=== PATIENT | male | born 1950 | race Caucasian/White ===

== ENCOUNTER 2019-11-05 10:13 | Outpatient (CLI) | payer MEDICARE, MEDICAID, SELFPAY ==
--- NOTE | 2019-11-05 13:00 | XRR_ITS ---
PROCEDURE INFORMATION: Exam: XR Right Shoulder Exam date and time: 11/05/2019 10:29 AM Age: 69 years old Clinical indication: Shoulder; Right; Patient HX: Pain when abducting, no know trauma TECHNIQUE: Imaging protocol: XR Right shoulder. Views: 2 or more views. COMPARISON: No relevant prior studies available. FINDINGS: Bones/joints: degenerative changes of the acromioclavicular joint. Degenerative changes of the glenohumeral joint Scapula normal Visualized ribs and visualized pulmonary parenchyma normal Coracoid process normal Soft tissues: Normal. XR/XR shoulder RT min 2V* [id number] IMPRESSION: Degenerative changes of the acromioclavicular joint and glenohumeral joint. Mild.
== END 2019-11-05 10:14 | disposition home or self-care (01) ==
LOC: RAD 10:18
PROVIDERS: PCP Nurse Practitioner Family; Visit Provider Family Medicine
DX: M25.511 Pain in right shoulder (principal)
CPT/HCPCS: 73030

== ENCOUNTER → 2019-12-31 09:00 | Outpatient (BNVA) | payer MEDICARE, MEDICAID, SELFPAY | PROVIDERS: PCP Nurse Practitioner Family; Visit Provider Nurse Practitioner Family | DX: I10 Essential (primary) hypertension (principal); E78.5 Hyperlipidemia, unspecified | CPT/HCPCS: 80053; 80061; 84439; 84443 ==

== ENCOUNTER → 2020-10-05 16:23 | Outpatient (BNVA) | payer MEDICARE, MEDICAID, SELFPAY | PROVIDERS: PCP Nurse Practitioner Family; Visit Provider Family Medicine | DX: T14.8XXA Other injury of unspecified body region, initial encounter (principal); W57.XXXA Bitten or stung by nonvenomous insect and other nonvenomous arthropods, initial encounter | CPT/HCPCS: 85025; 86618; 86666; 86757 ==

== ENCOUNTER → 2021-03-14 13:15 | Outpatient (BNVA) | payer MEDICARE, MEDICAID, SELFPAY | PROVIDERS: PCP Nurse Practitioner Family; Visit Provider Nurse Practitioner Family | DX: Z12.5 Encounter for screening for malignant neoplasm of prostate (principal); I10 Essential (primary) hypertension | CPT/HCPCS: 80053; 80061; 84443; G0103 ==

== ENCOUNTER 2022-01-26 17:48 | Emergency (ER) | payer MEDICARE, MEDICAID, SELFPAY ==
[2022-01-26 18:20] VITALS: BP 178/77; PULSE 79; RESP 17; TEMP 36.4; O2SAT 96; BMI 39.2
--- NOTE | 2022-01-26 18:52 | ECG_ITS ---
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 Measurements Intervals Heaters Rate: 65 P: 40 CA: 211 QRS: 29 QRSD: 98 T: 21 QT: 413 QTc: 430 Interpretive Statements SINUS RHYTHM WITH MARKED SINUS ARRHYTHMIA WITH FIRST DEGREE AV BLOCK No previous ECG available for comparison Electronically Signed On 01-26-2022 21:37:45 CDT by Gina Barnhart M.D. [id number]
--- NOTE | 2022-01-26 18:52 | XRR_ITS ---
PROCEDURE INFORMATION: Exam: XR Chest Exam date and time: 01/26/2022 7:17 PM Age: 71 years old Clinical indication: Other: Palpitations TECHNIQUE: Imaging protocol: Radiologic exam of the chest. Views: 1 view. COMPARISON: CR XR chest 2V* [id number] 05/19/2017 9:18 PM FINDINGS: Lungs: Unremarkable. No consolidation. Pleural spaces: Unremarkable. No pleural effusion. No pneumothorax. Heart/Mediastinum: Unremarkable. No cardiomegaly. Bones/joints: Unremarkable. XR/XR chest 1V portable [id number] IMPRESSION: No acute findings.
--- NOTE | 2022-01-26 18:54 | W.ED.ARRPALP ---
HPI - Arrhythmia/Palpitations General: Chief Complaint: Arrhythmia/Palpitations Stated Complaint: abnormal labs Time Seen by Provider: 01/26/22 18:37 Source: patient History of Present Illness: 71-year-old male with no prior history of coronary disease. He also does not have a history of atrial fibrillation. He went to the urgent care at [facility] earlier today, with hypertension. He had increased his lisinopril from 20mg to 40 mg daily, and was still having problems with his blood pressure. They did an EKG there, and noticed that he had an irregular heartbeat, and was sent here. He notes that besides some chronic pain in his chest from broken cartilage in his breastbone , he has not had significant pain or shortness of breath. He has had some sensation of heart racing at times MD complaint: palpitations Onset (ago): day(s) Duration: intermittent Severity: moderate Context: occurred during rest Arrhythmia history: other Associated symptoms: Deny diaphoresis, pre-syncope, sense of impending doom, short of breath, syncope or vomiting Review of Systems Const: Denies: diaphoresis Eyes: Denies: change in vision ENMT: Denies: throat pain Card: Reports: irregular heart rhythm; Denies: chest pain, syncope or pre-syncope Resp: Denies: dyspnea, productive cough or non-productive cough GI: Denies: vomiting Neuro: Denies: headache(s) or weakness in extremities PFSH ED PFSH: Medical History Acquired pes planus of both feet Colon cancer screening declined Enrolled in chronic care management Essential hypertension GERD (gastroesophageal reflux disease) Hyperlipidemia Influenza vaccine refused Lung cancer screening declined by patient Morbid obesity with BMI of 40.0-44.9, adult Osteoarthritis involving multiple joints on both sides of body Pneumococcal vaccination declined Screening for malignant neoplasm of prostate Shoulder pain, right Uncontrolled hypertension Surgical History History of cholecystectomy early Family History Other Cancer Diabetes Heart disease Social History Smoking and tobacco status: never smoked Second hand smoke exposure: No Smoking risk assessment/counseling performed?: No Alcohol intake: never Desire information about alcohol rehabilitation?: No Counseling given: No Desire information about substance/drug rehabilitation?: No Counseling given: No Adopted: No Caregiver/support person: No Lives independently: Yes Household members: none Marital status: Life Partner service: No Current occupational status: unemployed, retired and disabled Current gender identity: Male Special vicky needs: No Physical Exam Const: GENERAL APPEARANCE: cooperative and comfortable; not ill appearing and not frail appearing HENMT: COMMON NORMALS: normocephalic, atraumatic and Normal external nose present HEAD & SCALP: normocephalic and atraumatic NOSE: Normal external nose present Eye: COMMON NORMALS: Equal, round and reactive pupils present and EOMs intact bilaterally PUPIL: Yes Equal, round and reactive pupils present Neck/C-Spine: GENERAL: Yes trachea midline Chest: CHEST: Yes Symmetrical chest wall rise Resp: COMMON NORMALS: normal respiratory effort, No use of accessory muscles and clear to auscultation bilaterally AUSCULTATION: clear to auscultation bilaterally Cardio: COMMON NORMALS: regular rate RATE: regular rate RHYTHM: abnormal rhythm irregularly irregular GI: COMMON NORMALS: Normal to inspection, nondistended, normoactive bowel sounds present and Soft to palpation PALPATION: Yes Soft to palpation Extremity: GENERAL: Yes edema (1-2+) Neuro: [place] COMA SCALE: document GCS findings [place] coma scale eye opening: Spontaneous [place] coma scale verbal response: Orientated [place] coma scale motor response: Obey commands [place] coma scale total score: 15 Psych: COMMON NORMALS: mental status grossly normal Skin: NARRATIVE SKIN EXAM: Stasis dermatitis bilateral Course Vital Signs: Vital signs: Vital Signs Temperature 97.5 F L 01/26/22 18:20 Pulse Rate 58 L 01/26/22 19:33 Respiratory Rate 17 01/26/22 21:37 Blood Pressure 151/67 01/26/22 21:37 Pulse Oximetry 95 01/26/22 21:37 Oxygen Delivery Me thod 01/26/22 20:00 MDM - Arrhythmia/Palpitations Medical Decision Making 71-year-old male with hypertension. He is nearly asymptomatic for this except for some occasional palpitations. He reports no symptoms currently. He still has high blood pressure in the ER despite medications, although remains asymptomatic. His laboratory is benign. His EKG showed a sinus bradycardia with sinus arrhythmia and first-degree AV block. P waves are actually present. There is no atrial fibrillation. His troponin is negative. His chest x-ray is nonacute. He will be discharged. We will attempt to try another medication to decrease his blood pressure. Lab Data : 01/26/22 19:03 01/26/22 19:03 Radiology Impressions Chest X-Ray 01/26/22 18:52 IMPRESSION: No acute findings. Laboratory Results WBC 10.9 10^3/uL (4.0-10.0) H 01/26/22 19:03 RBC 4.87 10^6/uL (4.1-5.3) 01/26/22 19:03 Hgb 14.0 g/dL (11.7-16.6) 01/26/22 19:03 Hct 43.0 % (42.0-52.0) 01/26/22 19:03 MCV 88.3 fl (80-94) 01/26/22 19:03 MCH 28.7 pg (28.0-34.0) 01/26/22 19: MCHC 32.6 g/dL (30.0-36.0) 01/26/22 19:03 RDW 13.2 % (12.1-15.1) 01/26/22 19:03 Plt Count 177 10^3/cmm (130-400) 01/26/22 19:03 MPV 11.5 fL (7.4-10.4) H 01/26/22 19:03 Neut % (Auto) 63.4 % 01/26/22 19: Lymph % (Auto) 23.9 % 01/26/22 19:03 [place] % (Auto) 7.0 % 01/26/22 19:03 Eos % (Auto) 4.4 % 01/26/22 19:03 Baso % (Auto) 0.7 % 01/26/22 19:03 Neut # (Auto) 6.92 10^3/uL (1.8-7.7) 01/26/22 19:03 Lymph # (Auto) 2.6 10^3/uL (0.8-4.8) 01/26/22 19:03 [place] # (Auto) 0.8 10^3/uL (0.2-0.9) 01/26/22 19:03 Eos # (Auto) 0.5 10^3/uL (0.0-0.8) 01/26/22 19:03 Baso # (Auto) 0.1 10^3/uL (0.0-0.1) 01/26/22 19:03 Nucleated RBC % (auto) 0 % 01/26/22 19:03 Nucleated RBCs # 0.0 /100WBC 01/26/22 19:03 PT 13.90 SECONDS (12.1-14.9) 01/26/22 19:03 INR 1.04 (0.8-1.2) 01/26/22 19:03 Sodium 136 mmol/L (136-145) 01/26/22 19:03 Potassium 4.3 mmol/L (3.5-5.1) 01/26/22 19:03 Chloride 101 mmol/L (98-107) 01/26/22 19:03 Carbon Dioxide 26 mmol/L (22-29) 01/26/22 19:03 Anion Gap 13.3 (5-19) 01/26/22 19:03 BUN 20 mg/dL (8-23) 01/26/22 19:03 Creatinine 0.8 mg/dL (0.7-1.2) 01/26/22 19:03 GFR Calculation Not Reportable 01/26/22 19:03 Glucose 89 mg/dL (65-115) 01/26/22 19:03 Calculated Osmolality 284 mOsm/kg (285-295) L 01/26/22 19:03 Calcium 8.8 mg/dL (8.5-10.5) 01/26/22 19:03 Magnesium 2.0 mg/dL (1.7-2.3) 01/26/22 19:03 Total Bilirubin 0.5 mg/dL (0.15-1.2) 01/26/22 19:03 AST 17 U/L (0-40) 01/26/22 19:03 ALT 15 U/L (0-41) 01/26/22 19:03 Alkaline Phosphatase 90 U/L (40-130) 01/26/22 19:03 Troponin T Baseline 14 ng/L (0-15) 01/26/22 19:03 NT-Pro-B Natriuret Pep 210 pg/mL (0-125) H 01/26/22 19:03 Total Protein 6.8 g/dL (6.6-8.7) 01/26/22 19:03 Albumin 3.6 g/dL (3.5-5.2) 01/26/22 19:03 Globulin 3.2 g/dL (1.3-4.6) 01/26/22 19:03 TSH 1.38 uIU/mL (0.27-4.20) 01/26/22 19:03 Discharge Plan Discharge Patient Disposition: Home Clinical Impression: Essential hypertension Condition: Stable Prescriptions: New amlodipine 10 mg tablet 10 mg PO DAILY Qty: 30 0RF No Action acetaminophen [Tylenol] 325 mg capsule 650 mg PO QID PRN celecoxib 200 mg capsule 200 mg PO BID Qty: 60 1RF gabapentin 100 mg capsule 100 mg PO BID PRN (Reason: chronic pain/neuropathy) Qty: 60 1RF clonidine HCl 0.1 mg tablet 0.1 mg PO BID Qty: 180 1RF lisinopril 20 mg tablet 20 mg PO DAILY Qty: 30 5RF Discharge Orders: Discharge ED (Routine); Ordered 01/26/22 Ordered By: Joselito Valerio Referrals: Joaquim Gillespie MD [Primary Care Provider] - 4-7 days Discharge Activity: Increase activity as tolerated Patient Instructions: Hypertension (ED), Opioid Safety, Pain Management Activity Restrictions/Additional Instructions: Return for chest discomfort, syncope or passing out, shortness of breath, other concerning symptoms. Fill the medication you were prescribed. Continue to check your blood pressure twice daily. See your doctor next week. Coding Level of Care Code ED Pharmacy Informatics Manager for Jefe Fwd Exam Comprehensive
[2022-01-26 19:03] VITALS: BP 201/82; PULSE 68; RESP 16; O2SAT 97
[2022-01-26] MEDS: amlodipine 10 mg Tablet PO (19:04)
[2022-01-26] MEDS: enalaprilat 1.25 mg/mL Inj IVP (19:09)
[2022-01-26] MEDS: hyDRALAzine 20 mg/mL INJ 1 mL 10 MG IVP ×2 (19:09→21:02)
[2022-01-26 19:10] LABS: Basophils # 0.1 10^3/uL (0.0-0.1); Basophils % 0.7 %; Eosinophils # 0.5 10^3/uL (0.0-0.8); Eosinophils % 4.4 %; Lymphocytes # 2.6 10^3/uL (0.8-4.8); Lymphocytes % 23.9 %; Mean Corpuscular HGB Conc 32.6 g/dL (30.0-36.0); Mean Corpuscular Hemoglobin 28.7 pg (28.0-34.0); Mean Corpuscular Volume 88.3 fl (80-94); Mean Platelet Volume 11.5 fL (7.4-10.4); Monocytes # 0.8 10^3/uL (0.2-0.9); Neutrophils # 6.92 10^3/uL (1.8-7.7); Neutrophils % 63.4 %; Nucleated Red Blood Cells % 0 %; Platelet Count 177 10^3/cmm (130-400); Red Blood Count 4.87 10^6/uL (4.1-5.3); Red Cell Distribution Width 13.2 % (12.1-15.1); White Blood Count 10.9 10^3/uL (4.0-10.0)
[2022-01-26 19:33] VITALS: PULSE 58; RESP 16; O2SAT 95
[2022-01-26 19:35] LABS: Troponin(5th) Baseline 14 ng/L (0-15)
[2022-01-26 19:40] LABS: INR 1.04 (0.8-1.2)
[2022-01-26 19:43] LABS: Alanine Aminotransferase 15 U/L (0-41); Albumin Level 3.6 g/dL (3.5-5.2); Alkaline Phosphatase 90 U/L (40-130); Anion Gap 13.3 (5-19); Aspartate Amino Transferase 17 U/L (0-40); Blood Urea Nitrogen 20 mg/dL (8-23); Calcium 8.8 mg/dL (8.5-10.5); Carbon Dioxide 26 mmol/L (22-29); Chloride 101 mmol/L (98-107); Globulin 3.2 g/dL (1.3-4.6); Glucose 89 mg/dL (65-115); NT Pro B Type Natriuretic Pept 210 pg/mL (0-125); Osmolality Calculated 284 mOsm/kg (285-295); Potassium 4.3 mmol/L (3.5-5.1); Sodium 136 mmol/L (136-145); Thyroid Stimulating Hormone 1.38 uIU/mL (0.27-4.20); Total Bilirubin 0.5 mg/dL (0.15-1.2); Total Protein 6.8 g/dL (6.6-8.7)
[2022-01-26 20:00] VITALS: BP 156/93; RESP 14
[2022-01-26] MEDS: HYDROcodone-acetaminophen 5-325 mg Tablet 1 TAB PO (21:02)
[2022-01-26] MEDS: nitroglycerin 0.4 mg sublingual Tablet SUBLINGUAL (21:02)
[2022-01-26 21:37] VITALS: BP 151/67; RESP 17; O2SAT 95
[2022-01-26 21:38] VITALS: BP 151/67; RESP 17; O2SAT 95
== END 2022-01-26 21:39 | disposition home or self-care (01) ==
PROVIDERS: Emergency Provider Emergency Medicine; PCP Family Medicine Adult Medicine
DX: I10 Essential (primary) hypertension (principal)
CPT/HCPCS: 36415; 71045; 80053; 83735; 83880; 84443; 84484; 85025; 85610; 93005; 96361; 96374; 96375; 99285; J0360; J3490

== ENCOUNTER 2024-04-16 15:06 | Outpatient (CLI) | payer MEDICARE, MEDICAID, SELFPAY ==
--- NOTE | 2024-04-16 15:16 | XRR_ITS ---
PROCEDURE INFORMATION: Exam: XR Lumbosacral Spine Exam date and time: 04/16/2024 3:22 PM Age: 74 years old Clinical indication: Low back pain; Patient HX: Intermittent sharp pain in lower back that makes knees go week x2-3 months; Additional info: Lower back pain TECHNIQUE: Imaging protocol: Radiologic exam of the lumbosacral spine. Views: 2 or 3 views. COMPARISON: MR lumbar spine wo con* [id number] 12/18/2018 5:04 PM FINDINGS: Bones/joints: No acute fracture. Normal alignment. [id number] multilevel DJD throughout the lumbar spine and facet arthropathy in the lower lumbar spine. Soft tissues: Unremarkable. XR/XR lumbar spine 2-3V* [id number] IMPRESSION: No acute findings. Degenerative changes of the lumbar spine as described in the body of the report.
== END 2024-04-16 15:07 | disposition home or self-care (01) ==
LOC: RAD 15:11
PROVIDERS: Visit Provider Pediatrics
DX: M47.896 Other spondylosis, lumbar region (principal); M47.816 Spondylosis without myelopathy or radiculopathy, lumbar region; I10 Essential (primary) hypertension
CPT/HCPCS: 72100; 80053; 85025

== ENCOUNTER → 2025-03-09 15:50 | Outpatient (BNVA) | payer MEDICARE, MEDICAID, SELFPAY | DX: I10 Essential (primary) hypertension (principal); H61.23 Impacted cerumen, bilateral | CPT/HCPCS: 80053; 80061; 82607; 85025 ==